=== PATIENT | female | born 1950 | race Caucasian/White ===

== ENCOUNTER 2017-08-16 18:06 | Inpatient (IN) | payer OTHER ==
[~2017-08-16] VITALS: Ht 154.9 cm; Wt 81.7 kg
[2017-08-16 18:16] VITALS: Ht 154.9 cm; Wt 81.7 kg
[2017-08-16 19:27] LABS: BASOPHIL % 0.6 % (0-2); PLATELET COUNT 195 x10^3mcL (130-400); RED CELL DISTRIBUTION WIDTH 12.6 % (11.5-14.5)
[2017-08-16 19:29] LABS: UA SPECIFIC GRAVITY <=1.005 (1.005-1.035); microscopic required? YES; urine erythrocyte 1+ (NEGATIVE)
[2017-08-16 19:34] LABS: CALCIUM 9.1 mg/dL (8.5-10.1); CARBON DIOXIDE 28.9 mmol/L (21-32); CHLORIDE SERUM 94 mmol/L (98-107); CREATININE SERUM 0.8 mg/dL (0.6-1.0); GFR1 > 60 mL/min; GLUCOSE SERUM 119 mg/dL (74-106); POTASSIUM SERUM 3.4 mmol/L (3.5-5.1); SODIUM SERUM 132 mmol/L (136-145)
[2017-08-16 19:38] LABS: ALBUMIN 3.5 g/dL (3.4-5.0); ALKALINE PHOSPHATASE 91 U/L (46-116); ALT/SGPT 26 U/L (14-59); AST/SGOT 16 U/L (15-37); BILIRUBIN TOTAL 0.79 mg/dL (0.20-1.00); CHOLESTEROL 172 mg/dL (<200); LIPASE 108 IU/L (73-393)
[2017-08-16 19:39] LABS: HDL CHOLESTEROL 72 mg/dL (40-60)
[2017-08-16] MEDS ORDERED: ASPIR 8181 MG PO (21:52)
[2017-08-16] MEDS ORDERED: ZESTRIL20 MG PO (21:52)
[2017-08-16 22:35] LABS: AMPHETAMINE QUAL UR NONE DETECTED (See below)
[2017-08-16 22:38] LABS: MAGNESIUM 1.8 mg/dL (1.8-2.4); PHOSPHOROUS 3.1 mg/dL (2.5-4.9)
[2017-08-16 22:44] LABS: CHOLESTEROL/HDL RATIO 2.5
[2017-08-16] MEDS ORDERED: HCTZ/LISINOPRIL1 TA2 PO (22:45)
[2017-08-16 22:46] LABS: T3 TOTAL 1.07 ng/mL
[2017-08-16 22:47] LABS: FREE T4 1.2 ng/dL (0.76-1.46); FREE THYROXINE INDEX 3.4 ug/dL (1.4-4.5); T4(THYROXINE) 10.5 ug/dL (4.7-13.3)
[2017-08-16 22:59] VITALS: BP 161/80
[2017-08-17] VITALS (7 sets, daily range): BP systolic 105–161; BP diastolic 55–80
[2017-08-17 03:23] LABS: BASOPHIL % 0.3 % (0-2); PLATELET COUNT 154 x10^3mcL (130-400); RED CELL DISTRIBUTION WIDTH 11.8 % (11.5-14.5)
[2017-08-17 04:20] LABS: CALCIUM 7.2 mg/dL (8.5-10.1); CARBON DIOXIDE 27.5 mmol/L (21-32); CHLORIDE SERUM 99 mmol/L (98-107); CREATININE SERUM 0.5 mg/dL (0.6-1.0); GFR1 > 60 mL/min; GLUCOSE SERUM 98 mg/dL (74-106); MAGNESIUM 1.6 mg/dL (1.8-2.4); PHOSPHOROUS 3.5 mg/dL (2.5-4.9); POTASSIUM SERUM 3.4 mmol/L (3.5-5.1); SODIUM SERUM 136 mmol/L (136-145)
[2017-08-18 05:48] VITALS: BP 133/67
[2017-08-18 08:07] LABS: CALCIUM 8.6 mg/dL (8.5-10.1); CARBON DIOXIDE 26.2 mmol/L (21-32); CHLORIDE SERUM 106 mmol/L (98-107); CREATININE SERUM 0.6 mg/dL (0.6-1.0); GFR1 > 60 mL/min; GLUCOSE SERUM 102 mg/dL (74-106); MAGNESIUM 2.1 mg/dL (1.8-2.4); SODIUM SERUM 141 mmol/L (136-145)
[2017-08-18 08:24] LABS: POTASSIUM SERUM 4.2 mmol/L (3.5-5.1)
[2017-08-18 09:40] VITALS: BP 135/79
[2017-08-18 12:56] VITALS: BP 137/80
[2017-08-18] MEDS ORDERED: BIA500 PO (14:07)
[2017-08-18] MEDS ORDERED: AMO500 PO (14:07)
[2017-08-18] MEDS ORDERED: PRI20 PO (14:08)
[2017-08-18 14:53] VITALS: BP 137/80
== END 2017-08-18 15:55 | disposition home or self-care (01) | DRG 383 ==
LOC: ED 18:06 → DU 21:48
PROVIDERS: Emergency Medicine; Family Medicine; Internal Medicine Gastroenterology
PROC: 0DB68ZX Excision of Stomach, Via Natural or Artificial Opening Endoscopic, Diagnostic (ICD-10-PCS; principal; 2017-08-17 13:30)
DX: K25.3 Acute gastric ulcer without hemorrhage or perforation (principal); N17.0 Acute kidney failure with tubular necrosis; N39.0 Urinary tract infection, site not specified; E87.1 Hypo-osmolality and hyponatremia; A04.8 Other specified bacterial intestinal infections; I10 Essential (primary) hypertension; E83.42 Hypomagnesemia; J06.9 Acute upper respiratory infection, unspecified; R73.03 Prediabetes; E87.6 Hypokalemia; E78.5 Hyperlipidemia, unspecified; M19.90 Unspecified osteoarthritis, unspecified site; Z79.82 Long term (current) use of aspirin; Z68.35 Body mass index [BMI] 35.0-35.9, adult
CPT/HCPCS: 43235; 83880; 84439; 87804; J0696; J1200; J1610; J1885; J2250; J2310; J2405; J3010; J3490; J7030; J7620; J8597; Q0092

== ENCOUNTER 2018-04-09 19:58 | Emergency (ER) | payer OTHER ==
[~2018-04-09] VITALS: Ht 160 cm; Wt 77.1 kg
[~2018-04-09 19:58] MED LIST: AMO500 PO; ASPIR 8181 MG PO; BIA500 PO; HCTZ/LISINOPRIL1 TA2 PO; PRI20 PO; ZESTRIL20 MG PO
[2018-04-09 20:03] VITALS: BP 129/87; Ht 160 cm; Wt 77.1 kg
== END 2018-04-09 21:20 | disposition home or self-care (01) ==
LOC: ED 19:58
DX: N39.0 Urinary tract infection, site not specified (principal); I10 Essential (primary) hypertension; M19.90 Unspecified osteoarthritis, unspecified site
CPT/HCPCS: J1885